=== PATIENT | female | born 1995 | race Native Hawaiian/Other Pacific Islander ===

== ENCOUNTER 2024-05-25 10:15 | Outpatient (CLI) | payer BC, SELFPAY ==
--- NOTE | 2024-05-25 10:15 | CRLHL7_ITS ---
For Patients: As a result of the Century Cures Act, medical imaging exams and procedure reports are released immediately into your electronic medical record. You may view this report before your referring provider. If you have questions, please contact your health care provider. INDICATION: check for viability TECHNIQUE: Ultrasound OB pelvis transvaginal. Real-time pina-scale imaging of the pelvis was performed. COMPARISON: None. FINDINGS: There is a single intrauterine gestational sac with irregular borders. The embryo`s crown rump length measurement of 0.23 cm corresponds to a gestational age of 5 week and 5 day gestation with a sonographic due date of 01/20/2025. No heart tones are present. A yolk sac is present measuring approximately 5.3 millimeters in greatest dimension. The placenta has not yet developed. There is no sign of perigestational hemorrhage. The ovaries are normal in size and appearance. There are no suspicious fluid collections noted in the cul-de-sac. IMPRESSION: 1. A single intrauterine gestational sac with irregular borders is seen with a crown-rump measuring 0.23 centimeters consistent with a 5 week and 5 day gestation. 2. No heart tones are present, suspicious for failure, although findings may be secondary to early gestational age. Recommend repeat examination in approximately 1-2 weeks. Dictated by David Michael MD @ 05/25/2024 12:19:36 PM (Electronically Signed)
== END 2024-05-25 10:16 | disposition home or self-care (01) ==
LOC: US 10:16
PROVIDERS: Visit Provider Advanced Practice Midwife
DX: Z34.91 Encounter for supervision of normal pregnancy, unspecified, first trimester (principal); Z3A.01 Less than 8 weeks gestation of pregnancy
CPT/HCPCS: 76817; 86900; 86901

== ENCOUNTER 2024-06-07 13:57 | Outpatient (CLI) | payer BC, SELFPAY ==
--- NOTE | 2024-06-07 14:00 | CRLHL7_ITS ---
For Patients: As a result of the Century Cures Act, medical imaging exams and procedure reports are released immediately into your electronic medical record. You may view this report before your referring provider. If you have questions, please contact your health care provider. INDICATION: with inconclusive viability COMPARISON: May 25, 2024 pelvic ultrasound TECHNIQUE: Sonographic evaluation of the pelvis was performed utilizing transvaginal imaging technique. FINDINGS: The uterus is anteverted. There is a gestational sac in the uterus with irregular angular margins which measures 22.9 millimeters. The placenta is prominently thickened with numerous tiny cystic spaces. The gestational sac contains a yolk sac which measures 6.3 millimeters, but there is no definite pole. The ovaries were not sonographically visualized. Trace, likely physiologic pelvic free fluid. IMPRESSION: No viable intrauterine . There is an irregular appearing gestational sac in the uterus with a yolk sac and a prominently thickened placenta containing numerous tiny cystic spaces which is highly concerning for gestational trophoblastic disease such as a partial molar . The ovaries were not sonographically visualized. Dictated by Luis George MD @ 06/07/2024 3:11:58 PM (Electronically Signed)
== END 2024-06-07 13:58 | disposition home or self-care (01) ==
LOC: US 13:58
PROVIDERS: Visit Provider Advanced Practice Midwife
DX: O36.80X0 Pregnancy with inconclusive fetal viability, not applicable or unspecified (principal); O36.4XX0 Maternal care for intrauterine death, not applicable or unspecified; Z3A.00 Weeks of gestation of pregnancy not specified
CPT/HCPCS: 76817; 84443; 84702

== ENCOUNTER 2024-06-13 06:07 | Day surgery (SDC) | payer BC, SELFPAY ==
[2024-06-13] MEDS: DOXYCYCLINE HYCLATE 100 MG 200 MG PO (06:20)
[2024-06-13] MEDS: LACTATED RINGERS 1000 ML 1,000 ML 100 ML IV (06:25)
[2024-06-13] MEDS: SODIUM CHLORIDE 0.9 % (FLUSH) 10 ML SYRINGE IVF (06:25)
[2024-06-13 06:32] VITALS: BP 111/70; PULSE 75; RESP 16; TEMP 36.6; O2SAT 99; BMI 26.1
[2024-06-13 06:42] LABS: Hemoglobin* 10.1 gm/dL (12.0-16.0)
[2024-06-13] MEDS: BUPIVACAINE 0.5% 30 ML INJECTION (07:22)
--- NOTE | 2024-06-13 07:22 | W.PM.H&PU ---
History & Physical Update History & Physical Update H&P Reviewed and patient assessed: No changes noted H&P Updates: Kasia is a 29yo seen in pre-op prior to planned suction D&C. is complicated by suspected partial molar gestation. Early loss was diagnosed by US criteria, where there was note of a gestational sac with YS and no pole on 06/07/24 (>11 days from US with the same findings on 05/25). On 06/07, they describe a prominently thickened placenta with numerous tiny cystic spaces. She is s/p consultation and H&P with Dr. Morales. We reviewed Kasia's past medical and surgical histories this morning. Discussed surgical steps and goal of evacuating POC and pathologic evaluation to confirm/rule out molar gestation. If positive, discussed weekly hCG until negative (then repeat monthly x 1 if partial, x3 if complete) and the need for reliable contraception. She previously has used Nuvaring, has one on hand at home. Discussed risks of surgery including bleeding, infection, damage to surrounding structures and medical complications (VTE, FL, stroke). Written consent again signed. Pre-op labs reviewed, Hgb 10.1 and active T/S drawn. Proceed to suction D&C. PO doxycyline in pre-op prophylaxis. Bedside US will be available PRN.
--- NOTE | 2024-06-13 07:45 | W.ANESCHARGE ---
Anesthesia Charges Start Date/Time Anesthesia Start Date: 06/13/24 Anesthesia Start Time: 07:20 Stop Date/Time Anesthesia Stop Date: 06/13/24 Anesthesia Stop Time: 08:13
[2024-06-13] MEDS: SILVER NITRATE APPLICATOR 1 EACH STICK..EA. TOPICAL (07:54)
[2024-06-13 08:10] VITALS: BP 121/47; PULSE 83; RESP 16; TEMP 36.4; O2SAT 100
--- NOTE | 2024-06-13 08:11 | W.PM.GYNPROC ---
Procedure Note Time Seen by Provider: 08:11 Date of procedure: 06/13/24 Will [facility] bill your pro fee for this procedure?: Yes Pre-op diagnosis: Early loss Suspected molar gestation Procedure: Suction dilation and curettage Anesthesia: MAC and local Complications: None Surgeon: Morro Hernandez MD Estimated blood loss (mL): 50 IV fluids (mL): 700 Urine Output (mL): 100 Pathology: specimen obtained, sent to pathology Condition: stable Disposition: same day Findings: Pre-procedure TAUS confirmed early loss with irregular gestational sac, some adjacent snow-storm like appearing tissue Uterus palpates about 10 weeks in size Post-procedure TAUS thin, homogenous endometrial stripe <1cm Procedure Description: After verifying written informed consent, the patient was taken to the operating room. A time-out was completed to verify correct patient and procedure. Anesthesia was induced and found to be adequate. She was placed in the dorsal lithotomy position [facility] with care taken to avoid neurologic injury. She did receive a preoperative dose of doxycycline per protocol. She was prepared and draped in the usual sterile fashion. A surgical pause was conducted to confirm correct patient and procedure. A dilute solution of oxytocin (20U in 1L crystalloid) was infused throughout case given suspected molar gestation. In and out catheterization performed for 100 mL clear urine. External genital exam was noted to be within normal limits. A bimanual exam was performed revealing anteverted uterus, approximately 10 weeks in size. Speculum was inserted, the cervix was identified and grasped with a single-tooth tenaculum. A paracervical block was applied with 0.5% bupivacaine. Uterine sound was easily introduced and advanced to sounding length of 12cm. The cervix was serially dilated to accommodate a No. 8 curved curette. The curette was then introduced and advanced to the uterine fundus. The intrauterine contents were aspirated until there was no further return of tissue. Following this, a very gentle sharp curettage was performed of the uterine cavity just to confirm satisfactory uterine cri in all four quadrants. One additional pass was made with the suction curette with no tissue return. Transabdominal ultrasound was performed documenting a thin, uniform endometrial stripe. Characteristic images were obtained and printed for her medical record. Tenaculum was removed from the cervix. Cervix was made hemostatic with silver nitrate and cautery. Sponge and instrument count was correct. The patient was transferred to the recovery room in excellent condition. Products of conception were submitted to pathology. Surgical debrief. Procedure was uncomplicated, no team concerns expressed. EBL was 50mL. UOP 100mL. IVF 700mL. Surgical pathology is products of conception with concern for molar gestation, sent for pathologic evaluation.
[2024-06-13 08:15] VITALS: BP 116/69; PULSE 82; RESP 16; O2SAT 100
[2024-06-13 08:30] VITALS: BP 114/73; PULSE 62; RESP 16; O2SAT 100
[2024-06-13 08:45] VITALS: BP 110/73; PULSE 65; RESP 16; O2SAT 100
[2024-06-13 09:00] VITALS: BP 112/75; PULSE 68; RESP 16; O2SAT 100
== END 2024-06-13 09:18 | disposition home or self-care (01) ==
LOC: OR 06:09
PROVIDERS: Visit Provider Obstetrics & Gynecology
PROC: (CPT 59870; principal; 2024-06-13 07:15)
DX: O01.1 Incomplete and partial hydatidiform mole (principal)
CPT/HCPCS: 59870; 01965; 36415; 76998; 85018; 86850; 86900; 86901; 88271; 88305; 88342; A9270; J0665; J1885; J2250; J2590; J2704; J3010; J7120

== ENCOUNTER 2024-06-21 08:02 | Outpatient (CLI) | payer BC, SELFPAY | END 2024-06-21 08:03 | disposition home or self-care (01) | LOC: NFLDREF 08:03 | PROVIDERS: Visit Provider Obstetrics & Gynecology | DX: O02.89 Other abnormal products of conception (principal) | CPT/HCPCS: 84702 ==

== ENCOUNTER 2024-06-28 11:54 | Outpatient (CLI) | payer BC, SELFPAY | END 2024-06-28 11:55 | disposition home or self-care (01) | LOC: NFLDREF 16:01 | PROVIDERS: Visit Provider Obstetrics & Gynecology | DX: O01.1 Incomplete and partial hydatidiform mole (principal) | CPT/HCPCS: 84702 ==

== ENCOUNTER 2025-07-10 10:37 | Outpatient (CLI) | payer MEDICAID, SELFPAY | END 2025-07-10 10:38 | disposition home or self-care (01) | PROVIDERS: Visit Provider Obstetrics & Gynecology | DX: Z34.83 Encounter for supervision of other normal pregnancy, third trimester (principal) | CPT/HCPCS: 86592 ==

== ENCOUNTER 2025-08-30 15:45 | Outpatient (CLI) | payer BC, SELFPAY | END 2025-08-30 15:46 | disposition home or self-care (01) | LOC: NFLDREF 09-01 19:33 | PROVIDERS: Visit Provider Obstetrics & Gynecology | DX: Z34.93 Encounter for supervision of normal pregnancy, unspecified, third trimester (principal) | CPT/HCPCS: 87081; 87653 ==

== ENCOUNTER 2025-09-24 05:46 | Inpatient (IN) | payer BC, SELFPAY ==
[2025-09-24] VITALS (21 sets, daily range): BP systolic 94–123; BP diastolic 58–78; PULSE 61–89; RESP 14–16; TEMP 36.4–37.1; O2SAT 97–100; BMI 33.5
[2025-09-24] MEDS: LACTATED RINGERS 1000 ML 1,000 ML 999 ML IV (06:33)
[2025-09-24 06:40] LABS: Hematocrit* 37.5 % (33.0-51.0); Hemoglobin* 12.6 gm/dL (12.0-16.0); Immature Granulocytes Abs Auto 0.03 K/uL (0.00-0.30); Immature Granulocytes Pct Auto 0.4 %; Lymphocytes Absolute Auto 1.97 K/uL (0.90-2.90); Mean Corpuscular HGB Conc 34 gm/dL (32-36); Mean Corpuscular Hemoglobin 29 pg (26-34); Mean Corpuscular Volume 87 fL (80-100); RDW Coefficient of Variation % 15.8 % (11.5-15.5); Red Blood Count* 4.31 m/uL (4.00-5.20); White Blood Count* 7.09 K/uL (4.50-11.00)
[2025-09-24 06:52] LABS: Slide Review Reflex No
--- NOTE | 2025-09-24 07:22 | SUR.OPER ---
PATIENT QUESTIONS ANSWERED SATISFACTORILY PREOPERATIVELY. PATIENT BROUGHT TO OR #5 BY AMBULATION BY OB RN. Patient positioned supine with a bump under the right on OR #5 bed for the procedure. ? Final approval of positioning by surgeon.
[2025-09-24] MEDS: LACTATED RINGERS 1000 ML 1,000 ML 100 ML IV ×2 (08:29→11:42)
--- NOTE | 2025-09-24 12:16 | PM.OBPRCCS ---
Procedure Date of procedure: 09/24/25 Pre-op diagnosis: 1. 39 4/7 weeks gestation. 2. History of prior low transverse section. 3. History of molar . Post-op diagnosis: same Procedure Done: Global Will [facility] bill your pro fee for this procedure?: Yes Blood Loss Measurement Type: QBL (322 mL) Bakri Used: No IV fluids (mL): 1,500 Urine Output (mL): 300 Surgeon: Theodora Morales MD Journeyman Meat Cutter: NORMAN Wilson Anesthesia Type: Spinal and TAP Block Findings: Moderate adhesions between the fascia and rectus muscles. Live-born female , cephalic presentation, Apgars 9 and 9 at 1 and 5 minutes respectively. Weight pending. Normal-appearing uterus, tubes, and ovaries bilaterally. Procedure Name: Repeat low transverse section. Vacuum-assisted delivery of the vertex through the hysterotomy incision. Procedure Description: After obtaining informed consent, the patient was taken to the operating room where spinal anesthesia was obtained and found to be adequate. She was prepared and draped in the normal sterile fashion in the dorsal supine position with a leftward tilt. A Pfannenstiel skin incision was made with a scalpel along the line of the patient's previous Pfannenstiel scar. This incision was carried down to the underlying layer of fascia with the Bovie. The fascia was incised in the midline and the incision extended laterally. The superior and inferior aspects of the fascial incision were grasped with Makenna clamps, elevated and the underlying rectus muscles dissected off sharply and with electrocautery. The rectus muscles were then in the midline. The underlying peritoneum was identified, grasped with pickups, and entered sharply with Metzenbaum scissors. This incision was extended superiorly and inferiorly with good visualization of the bladder. The Scott O retractor was then placed into the incision. The lower uterine segment was then incised in a transverse fashion with the scalpel. Upon entry into the uterus, clear amniotic fluid was noted. The uterine incision was extended laterally with blunt finger fractionation. I attempted to deliver the 's head, but with fundal pressure, could not elevated through the hysterotomy incision. After 2-3 failed attempts, I quickly asked for a kiwi vacuum extractor, which I placed under the vertex. The first attempt resulted in an immediate pop-off, presumably due to incomplete suction given the infant's dense hair. With the second application of the kiwi, I was able to guide the head through the hysterotomy incision, and delivered the remainder of the 's body. The nose and mouth were suctioned with the bulb suction. The cord was doubly clamped and cut, and the was handed off the field for evaluation. The placenta was delivered spontaneously with umbilical cord traction and fundal massage. The uterus was cleared of all clots and debris. The uterine incision was reapproximated in a running locking fashion with a 0 chromic suture. A 2nd layer of the same suture was used to imbricate in horizontal fashion. Clots were removed. All instruments and retractors were removed. The anterior peritoneum was inspected and noted to be hemostatic. The subfascial tissues were carefully inspected and hemostasis assured. The fascia was reapproximated in a running fashion with a looped 0 Maxon suture. The subcutaneous tissues were copiously irrigated. Hemostasis was assured. The skin was closed in a subcuticular fashion with 4-0 Vicryl. Surgical glue and dressing were applied. A TAP block was administered by the AREA INTELLIGENCE TECHNICIAN. The patient tolerated the procedure well. Sponge, lap, needle, and instrument counts were reported as correct x2. The patient was taken to the recovery room, awake, and in stable condition. She did receive two grams of IV Ancef preoperatively. 30 mg of IV Toradol was administered at the conclusion of the procedure. Complications: None. Pathology: specimen obtained, sent to pathology (Placenta) Surgery Debrief Performed: Yes Condition: stable Disposition: floor
--- NOTE | 2025-09-24 12:45 | P.ANES_ITS ---
Anesthesia Charges Start Date/Time Anesthesia Start Date: 09/24/25 Anesthesia Start Time: 10:58 Stop Date/Time Anesthesia Stop Date: 09/24/25 Anesthesia Stop Time: 12:37 Coding CPT Codes CPT Codes: ANESTH CS DELIVERY - 91259 ([id number]) P2 - PATIENT W/MILD SYST DISEASE, QK - SENIOR IT AUDITOR 2-4 CNCRNT ANES PROC, QX - CARPENTER REPAIRER SVC W/ MD MED DIRECTION
--- NOTE | 2025-09-24 12:45 | W.ANESCHARGE ---
Anesthesia Charges Start Date/Time Anesthesia Start Date: 09/24/25 Anesthesia Start Time: 10:58 Stop Date/Time Anesthesia Stop Date: 09/24/25 Anesthesia Stop Time: 12:37 Coding CPT Codes CPT Codes: ANESTH CS DELIVERY - 33912 ([id number]) P2 - PATIENT W/MILD SYST DISEASE, QK - TICK SEWER 2-4 CNCRNT ANES PROC, QX - AVIATION BOATSWAIN'S MATE SVC W/ MD MED DIRECTION
--- NOTE | 2025-09-24 12:51 | W.PM.NB ---
Nerve Block Nerve Block Time Seen by Provider: 12: Date Seen: 09/24/25 Type of block requested by surgeon for post-operative analgesia: TAP Side: bilateral Time out performed: Yes Verification of patient name: Yes Verification of date of : Yes Name of person performing procedure: Arthur Gia Continuous monitoring Was continuous monitoring of O2 sat, B/P, cardiac exercise specialist, recorded every 15 minutes?: Yes Procedure Checklist: sterile prep, needles and gloves Ultrasound guided. Images saved: Yes Medications given in 5ml increments after negative aspiration: Marcaine %: 0.25 mL: 30 Needle gauge: 20 and Exparel mL: 10 Needle gauge: 20 Patient tolerated procedure well: Yes Block Charges Block Charge (with Pro Fee): TAP Bilateral Use of Ultrasound Machine for Block: Yes- US Guidance/pain block
--- NOTE | 2025-09-24 12:57 | P.ANES_ITS ---
Anesthesia Charges Start Date/Time Anesthesia Start Date: 09/24/25 Anesthesia Start Time: 10:58 Stop Date/Time Anesthesia Stop Date: 09/24/25 Anesthesia Stop Time: 12:37 Coding CPT Codes CPT Codes: ANESTH CS DELIVERY - 02431 ([id number]) QK - WOOD MOLDER 2-4 CNCRNT ANES PROC, QX - AWNING INSTALLER SVC W/ MD MED DIRECTION, P2 - PATIENT W/MILD SYST DISEASE
--- NOTE | 2025-09-24 12:57 | W.ANESCHARGE ---
Anesthesia Charges Start Date/Time Anesthesia Start Date: 09/24/25 Anesthesia Start Time: 10:58 Stop Date/Time Anesthesia Stop Date: 09/24/25 Anesthesia Stop Time: 12:37 Coding CPT Codes CPT Codes: ANESTH CS DELIVERY - 97285 ([id number]) QK - NEWS LIBRARY DIRECTOR 2-4 CNCRNT ANES PROC, QX - SHEEP AND WHEAT FARMER SVC W/ MD MED DIRECTION, P2 - PATIENT W/MILD SYST DISEASE
[2025-09-24] MEDS: ACETAMINOPHEN 500 MG TABLET 1000 MG PO ×2 (15:38→21:56)
[2025-09-25 00:16] VITALS: BP 103/65; PULSE 83; RESP 16; TEMP 37.1; O2SAT 98
[2025-09-25] MEDS: ACETAMINOPHEN 500 MG TABLET 1000 MG PO ×4 (03:50→23:32)
[2025-09-25 03:57] VITALS: BP 102/63; PULSE 72; RESP 16; TEMP 36.5; O2SAT 97
[2025-09-25 06:26] LABS: Hemoglobin* 11.4 gm/dL (12.0-16.0)
--- NOTE | 2025-09-25 08:04 | PM.OBPNVD1 ---
OB - PN:Subj Subjective Date Seen: 09/25/25 Patient comments OB post-: no complaints, pain well controlled, tolerating diet and flatus present [place] status: and doing well [place] feeding status: exclusively Narrative: Kasia feels well.? Her pain is well controlled with current medications.? She has no new complaints.? Urinary output is adequate and she has voided without difficulty since her catheter removal earlier this morning.? Has a good appetite, is tolerating a general diet, is passing flatus, and has not had a bowel movement.? Has scant amount of rubra lochia.? She is ambulating well.?She is and feels it is going much better than with her last child. OB - PN: Obj Exam Physical Exam: Vital signs: Temp Pulse Resp BP Pulse Ox O2 Del Method 97.7 F 72 16 102/63 97 Room Air 09/25/25 03:57 09/25/25 03:57 09/25/25 03:57 09/25/25 03:57 09/25/25 03:57 09/25/25 03:57 Narrative: GENERAL APPEARANCE:? normal affect, alert, no distress? MOOD:? appropriate? CHEST:? clear to auscultation and percussion? HEART:? regular rate and rhythm? BREASTS: soft, nontender, no erythema, nipples intact? ABDOMEN:? soft, non-tender the uterine fundus is U/1 and is appropriate for the stage of recovery. Incision dressing is CDI.? EXTREMITIES:? normal and no edema? Urinary Catheter Management: Straight: Cath placed during this visit: no OB - PN: Obj Data Labs Labs: Laboratory Results - last 24 hr 09/25/25 06:06 Hgb 11.4 L OB - PN: A/P Delivery Assessment and Plan (1) care following delivery: Status: Acute (2) Lactating mother: Status: Acute (3) Depression: Status: Acute (4) Anxiety: Status: Acute (5) ADHD (attention deficit hyperactivity disorder): Status: Acute Plan day: 1 Plan: routine care Comments: Anticipate discharge home tomorrow or the following day per patient preference.
[2025-09-25] MEDS: DOCUSATE SODIUM 100 MG CAPSULE PO (08:42)
[2025-09-25 08:43] VITALS: BP 97/69; PULSE 71; RESP 17; TEMP 36.6; O2SAT 98
[2025-09-25 11:46] VITALS: BP 109/73; PULSE 71; RESP 16; TEMP 36.8; O2SAT 97
[2025-09-25 19:33] VITALS: BP 110/73; PULSE 80; RESP 16; TEMP 36.6; O2SAT 98
[2025-09-26] MEDS: IBUPROFEN 600 MG TABLET PO ×3 (02:31→15:06)
[2025-09-26 04:30] VITALS: BP 117/77; PULSE 75; RESP 12; TEMP 36.8; O2SAT 99
[2025-09-26] MEDS: ACETAMINOPHEN 500 MG TABLET 1000 MG PO ×3 (05:42→17:58)
[2025-09-26] MEDS: DOCUSATE SODIUM 100 MG CAPSULE PO (08:46)
[2025-09-26 08:48] VITALS: BP 116/76; PULSE 86; RESP 16; TEMP 36.6; O2SAT 99
--- NOTE | 2025-09-26 08:49 | P.DS_ITS ---
DS: Providers Provider Date Seen: 09/26/25 Date of admission: 09/24/25 05:46 Primary care physician: Not a Local Provider Admitting Clinician: Theodora Morales MD Consults: 09/24/25 06:39 Consult to Kraft Digester Operator [CONS] Routine Comment: Reason for Consult:: Social Service Consult Attending Physician on discharge: Arlen Sapp CNM Date of Discharge: 09/26/25 DS: Diagnosis Discharge Diagnosis (1) Lactating mother: Status: Acute (2) care following delivery: Status: Acute (3) History of section complicating : Status: Acute (4) Depression: Status: Acute (5) Anxiety: Status: Acute (6) ADHD (attention deficit hyperactivity disorder): Status: Acute Exam Narrative: Exam Narrative: GENERAL APPEARANCE:? normal affect, alert, no distress MOOD:? appropriate CHEST:? clear to auscultation HEART:? regular rate and rhythm ABDOMEN:? soft, non-tender the uterine fundus is -1 cm from Umbilicus, Midline and is appropriate for the stage of recovery. EXTREMITIES:? normal and trace to no edema Incision: Healing well, no surrounding erythema, abnormal induration or discharge Const: Vital Signs, click to edit/add: Vital Signs - 24 hr 09/25/25 11:46 09/25/25 19:33 09/26/25 04:30 Temperature 98.3 F 97.8 F 98.2 F Pulse Rate [Pulse Oximeter] 71 80 75 Respiratory Rate 16 16 12 Blood Pressure [Le ft Arm] 109/73 110/73 117/77 Pulse Oximetry 97 98 99 Oxygen Delivery Me thod Room Air Room Air Room Air OB - DS: Summary Hospital Course Hospital Course: Kasia is a 30 y.o. G 4 P 2 who was admitted to [facility] for scheduled repeat C- section. ?She had a section that was uncomplicated. The patient feels well. ?The pain is well controlled with current medications. ?She has no new complaints. ?She is breast feeding and reports things are going well. the patient has done well.? Vitals have been stable.? She has remained afebrile.? Has a good appetite, is tolerating a general diet. ?She is voiding without difficulty.? She is passing gas and has not had a bowel movement.? She is ambulating and denies any dizziness.? Has small amount of rubra lochia. She is planning condoms for prevention. we did discuss other non-hormonal options as well such as Phexxy and Copper IUD. Discharge home with baby.? Follow up in 2 weeks and 6 weeks.? , may see if needed? Hgb stable. Iron supplement: plans to continue her Vitron-C until gone. ?Labs WNL or stable?? For pain control of perineum, breast and pelvic pain, take 600 mg Ibuprofen every 6 hours as needed by mouth or 1000 mg acetaminophen (Tylenol) every 6 hours by mouth as needed. You can alternate these so you are taking something every 3 hours as needed. A heating pad can also be used for your abdomen or breasts. You may also take docusate sodium up to twice daily to soften your stools and help to prevent constipation. You may wean off of it when your stools return to normal.? Problems: none Peripartum Data delivery method: Repeat Section Procedures: Procedures Operation Date: 09/24/25 07:15 Actual Procedure Side Surgeon p Repeat Section Theodora Morales MD complications: none Infant Gender: Female Infant Discharge Plan: Home Time Spent with Patient Time attestation: Total time spent providing and/or coordinating discharge services: Discharge Plan Discharge Disposition: Home, Self-Care Date of Admission: 09/24/25 05:46 Attending Provider on Discharge: Arlen Sapp CNM Primary Care Provider: Provider,Not a Local Condition: Stable Anticipated Discharge Date/Time: 09/26/25 10:00 Discharge Medications: New acetaminophen 500 mg Tablet 1,000 mg PO Q6H PRN (Reason: Pain) Qty: 30 0RF docusate sodium 100 mg Capsule 100 mg PO DAILY Qty: 10 0RF ibuprofen 600 mg Tablet 600 mg PO Q6H PRN (Reason: Pain) Qty: 30 0RF oxycodone 5 mg Tablet 5 - 10 mg PO Q4H PRN (Reason: Pain) Qty: 10 0RF Continued cetirizine [Zyrtec] 10 mg tablet 10 mg PO QDAY [id number] 3 fatty no.1 27-1-300 mg capsule 1 cap PO DAILY Vitron-C 65 mg iron- 125 mg tablet,delayed release (DR/EC) 1 tab PO QDAY dextroamphetamine-amphetamine [Adderall] 5 mg tablet 5 mg PO BID Rx Instructions: administer doses at least 4-6 hours apart dextroamphetamine-amphetamine 5 mg tablet 5 mg PO BID Discharge Orders: Discharge Order (Routine); Ordered 09/26/25 Ordered By: Arlen Sapp Patient Education: OB Over the Counter Medication Information, OB /Breast Feeding Additional Instructions: Discharge instructions were reviewed with the patient including signs and symptoms of infection and home going medications Lifting Restrictions: 20 pounds for 6 weeks No not submerge incision under water X 2 weeks? Nothing vaginally for 6 weeks: no tampons or intercourse Do not drive while taking narcotic pain medication(s) Off Work or School for 8 weeks Symptoms to report to doctor: * Bleeding that saturates more than one pad per hour * Passing clots larger than the size of a golf ball * Pain not relieved by prescribed medication * Fever above 100.4 degrees Fahrenheit * A foul vaginal odor * Difficulty in emotions, mood, and functions * Thoughts of hurting yourself and/or * Painful, reddened area in your breast * Any drainage, redness, or tenderness in your IV/epidural site * Severe headache that doesn't improve after taking medications * Changes in vision, including temporary loss of vision, blurred vision, and/or light sensitivity * Upper abdominal pain (usually under ribs on the right side) * Decrease in urination or painful, frequent urinating * Chest pain * Shortness of breath * Tenderness or pain with redness and/swelling in the calf(s) of your leg Optional 2-week visit: incision check, discuss feeding concerns, review control options and screen for anxiety/depression. 6-week visit for an annual exam. consultation services are available to all mothers and babies for the first year after delivery.? To make an appointment, please call [phone]. Activity Level: Activity as Tolerated and No strenuous activity Discharge Diet: Regular Follow Up Appointments: Provider,Not a Local [Primary Care Provider, Family Practice] [facility] [Provider Group] Forms: [employer] Video Info Instructions
[2025-09-26 11:44] VITALS: BP 110/71; PULSE 82; RESP 20; TEMP 36.6; O2SAT 99
== END 2025-09-26 19:00 | disposition home or self-care (01) | DRG 540 ==
PROVIDERS: Admitting Provider Obstetrics & Gynecology; Visit Provider Obstetrics & Gynecology
PROC: 10D00Z1 Extraction of Products of Conception, Low, Open Approach (ICD-10-PCS; CPT 59514; principal; 2025-09-24 10:30)
DX: O34.211 Maternal care for low transverse scar from previous cesarean delivery (principal); O99.344 Other mental disorders complicating childbirth; F32.A Depression, unspecified; F41.9 Anxiety disorder, unspecified; F90.9 Attention-deficit hyperactivity disorder, unspecified type; Z3A.39 39 weeks gestation of pregnancy; Z37.0 Single live birth
CPT/HCPCS: 01961; 36415; 64488; 76942; 85018; 85025; 86592; 86850; 86900; 86901; A4314; A9270; J0665; J0666; J0690; J1885; J2371; J2405; J2590; J7120

== ENCOUNTER 2025-10-11 10:40 | Outpatient (CLI) | payer BC, SELFPAY ==
--- NOTE | 2025-10-11 12:16 | W.PM.LAC.MC ---
Consult Note - Mom Date of Visit Date of visit: 10/11/25 Reason for consultation: Assistance Needed and Low Milk Supply (or milk transfer issue - not sure) Visit Code: Visit Patient's Information Phone number: [phone] : 4 Para: 2 Allergies No Known Drug Allergies Allergy (Verified 09/20/25 09:24) Mother's Medical History: Medical History (Updated 09/28/25 @ 00:00 by Background Daemon) Nonviable ?O02.89 - Other abnormal products of conception (ICD-10) with inconclusive viability ?O36.80X0 - with inconclusive viability, not applicable or unspecified (ICD-10) Work Plans: will be home with baby, at least for awhile Delivery Information Delivery type: Primary C/S; Non-Labored Gestational Age: 39+2 Gestational Weight For Age: AGA Weight: 3.45 kg Discharge Weight: 3.122 kg Percentage weight loss: 9.5 Baby's Information Baby's Age at Visit: 17 days Baby's Provider or Clinic: [facility] Jaundice: No Past Experience Past Experience: Yes (x 6 mos with first child and then her supply quickly dwindled) Current Frequency of Day Feedings: seems like all the time every 1-2 hrs Frequency of Night Feedings: 6 hr sleep stretch x1, then every 3 hrs Both Breasts: No (nursing on one side for about 20-30 minutes) Suck: strong Latch: shallow, occas painful Length of Time: 20-30 min Goals: at least 6 months Pumping Pumping: Yes Quantity Pumped: gets 1.5-2oz 4-5x/day Supplementing EBM Supplement: Yes (bottles usually 2x/day, takes 1.5 oz or so, can be b4 or after nsg) Formula Supplement: No Baby Elimination Number of Wet Diapers a Day: ea feeding Number of BM a Day: 6 or more/day; yellow and seedy Breast/Nipple Condition Breast Information: Breasts are symmetrical with rounded lower quadrants, intramammary distance is less than 1.5 inches. No erythema. Nipples are supple, everted prior to feeding. Had breast changes during , able to express colostrum prior to delivery Nipples measures for flange size: RIGHT: 16mm, using 17 mm flange and this is comfortable LEFT: 19 mm, using a 19mm flange and this is comfortable Discussed sizing up 1-2mm if begins to feel pinchy Breast Shape: Round and Firm Engorgement: No Maternal Nipple Condition - Left: Common Nipple Maternal Nipple Condition - Right: Common Nipple Sore Nipples: Yes (just with initial latch) Baby Assessment Skin: Normal Tongue/frenulum: Restricted mid-range (slight tight, able to extend tongue over bottom gum line and assembly machine operator around gloved finger) Palate: Average Lips: Relaxed Jaw Alignment: Symmetrical Mucosa: [place], moist Onsite Observation Pre-Feed weight: 3.248 kg Post-Feed weight: 3.293 kg Milk Transferred (mL): 45 Position: Cross cradle Attachment/latch-on achieved: Easily (on mom's right side) and With difficulty (a t more challenging but able to get a deep latch and maintain) Suck pattern: Suck burst and normal rest Swallow: Audible, consistent and Gulping (more on right side) Behavior following feed: Alert, fussy (slightly fussy, until given 15 ml of mom's EBM) Pre-Nursing Left Nipple: Within Normal Limits Pre-Nursing Right Nipple: Within Normal Limits Post-Nursing Left Nipple: Within Normal Limits Post-Nursing Right Nipple: Within Normal Limits Assessments/Interventions Assessments/Interventions: Sarmad latched to mom's LEFT breast, latched deeply but slid down to the end of her nipple, relatched several times before maintained a deeper latch; and stayed nursing for 15 minutes before getting quite sleepy at the breast Transferred 18 ml of milk Sarmad then latched to mom's RIGHT breast, latched deeply and nursed more vigorously and nursed for another 11 minutes. Transferred 27 ml of milk. Total volume transferred: 45 ml, and then took 15 ml of EBM and quite alert and content Sarmad needed gentle support to stay latched deeply. Education provided: Early feeding cues to maximize timing of latching, Asymmetric latch technique for wide/deep latch to increase milk, Transfer for baby and increase comfort for mom, Supply/demand nature of milk supply, Need for frequent stimulation/milk removal, Alternative feeding methods (SNS, cup, finger feeding, bottling) (bottle options and paced bottle feeding reviewed), Pumping for milk management and Milk collection, storage Feeding Plan: Breastfeed for 15 on each breast, listening for active swallowing; offer both breasts ea feeding to increase volume to baby Start with left side 2x for every 1x on right due to much lower supply; when mom feels it evening out then start on opposite side with ea feeding Pump both breasts for: 15-20 minutes after every other feeding as able to stimulate supply and to have EBM for supplement; a full 20 minutes if pumping instead of Feed baby 15 ml of pumped milk after BFing, another 15 ml if she finishes the first part and still acts hungry. Feed baby 2-2.5oz if only giving a bottle Rest, and repeat every 2-3 hours, watch for early feeding cues. No longer than 3 hr sleep stretch at night since still below birthweight Discussed galactogogues; also discussed food options and hydration needs Follow-Up Suggested follow up: Appointment in 1-3 days Time Spent Time spent with patient (min): 90 Meds Home Medications and Allergies Home Medications ?Medication ?Instructions ?Recorded ?Confirmed ?Type [id number] 3 fatty no.1 27 1 cap PO DAILY 05/25/25 09/24/25 History mg-1 mg-300 mg capsule cetirizine 10 mg tablet (Zyrtec) 10 mg PO QDAY 05/25/25 09/24/25 History iron,carbonyl 65 mg-vitamin C 125 1 tab PO QDAY 05/25/25 09/24/25 History mg tablet,delayed release (Vitron-C) dextroamphetamine-amphetamine 5 mg 5 mg PO BID 09/24/25 09/24/25 History tablet acetaminophen 500 mg tablet 1,000 mg (2 x 500 mg) PO Q6H PRN 09/26/25 Rx Pain #30 tabs docusate sodium 100 mg capsule 100 mg PO DAILY #10 caps 09/26/25 Rx ibuprofen 600 mg tablet 600 mg PO Q6H PRN Pain #30 tabs 09/26/25 Rx oxycodone 5 mg tablet 5 - 10 mg (1 - 2 x 5 mg) PO Q4H 09/26/25 Rx PRN Pain #10 tabs dextroamphetamine-amphetamine 5 mg 5 mg PO BID #60 tabs 10/03/25 Rx tablet (Adderall) Allergies Allergy/AdvReac Type Severity Reaction Status Date / Time No Known Drug Allergies Allergy Verified 09/20/25 09:24
== END 2025-10-11 10:41 | disposition home or self-care (01) ==
LOC: OB LAC 10:42
PROVIDERS: Visit Provider Obstetrics & Gynecology
DX: Z39.1 Encounter for care and examination of lactating mother (principal)
CPT/HCPCS: G0463